=== PATIENT | male | born 1940 | race Caucasian/White ===

== ENCOUNTER → 2024-05-07 | Outpatient (CLI) | payer MEDICARE, SELFPAY ==
--- NOTE | 2024-05-07 14:22 | XR_ITS ---
Examination: Retroperitoneal ultrasound, complete Technique: Multiple high resolution grayscale images of the retroperitoneum obtained, including kidneys and bladder. Exam date and time:May 07, 2024 1431 hours INDICATIONS: Acute renal insufficiency diagnosis several months ago. FINDINGS: Right kidney 10.1 x 5.1 x 5.3 cm cortex 1.5 cm 15 x 16 mm lateral cyst 20 x 19 mm upper pole cyst Left kidney 8.9 x 4.3 x 3.7 cm renal cortex 1.3 cm Moderate bilateral renal parenchymal scar formation Left perinephric stranding No bladder mass or bladder calculi Bladder prevoid volume 255 cc patient unable to void Normal prostate volume 14.6 cc no prostate nodules IMPRESSION: Small left kidney Bilateral renal cortical thinning Moderate bilateral renal parenchymal scar formation
== END | disposition home or self-care (01) ==
PROVIDERS: PCP Family Medicine; Referring Provider Internal Medicine; Visit Provider Internal Medicine
DX: N28.89 Other specified disorders of kidney and ureter (principal)
CPT/HCPCS: 76770

== ENCOUNTER → 2024-06-19 | Outpatient (CLI) | payer MEDICARE, SELFPAY ==
[2024-06-19 08:00] LABS: Collection Type, Urine Clean Catch; Squamous Epithelial Cell,Urine 0 /hpf (0-5)
[2024-06-19 08:34] LABS: Basophils # (Auto) 0.1 Thou/mm3 (0.0-0.2); Basophils % (Auto) 1 % (0-2.5); Eosinophils # (Auto) 0.5 Thou/mm3 (0.0-0.5); Eosinophils % (Auto) 7 % (0-10); Hematocrit 44.4 % (41.0-53.0); Hemoglobin 14.4 g/dL (13.5-16.0); Immature Granulocytes % (Auto) 0 % (0-0); Immature Granulocytes Auto 0.03 Thou/mm3 (0.00-0.00); Lymphocytes # (Auto) 1.1 Thou/mm3 (1.0-4.8); Lymphocytes % (Auto) 15 % (10-50); Mean Corpuscular HGB Conc 32.4 g/dl (31.0-37.0); Mean Corpuscular Hemoglobin 27.9 pg (25.0-35.0); Mean Corpuscular Volume 86 fL (80-100); Monocytes # (Auto) 0.7 Thou/mm3 (0.0-0.8); Monocytes % (Auto) 10 % (0-12); Neutrophils # (Auto) 4.6 Thou/mm3 (1.8-7.7); Neutrophils % (Auto) 67 % (37-80); Nucleated Red Blood Cell % 0 /100 WBC (0); Platelet Count 250 Thou/mm3 (140-440); RDW Standard Deviation 41.2 fL (35.1-43.9); Red Blood Count 5.16 Miln/mm3 (4.50-5.90)
[2024-06-19 08:38] LABS: Bilirubin,Urine Negative (Negative); Blood,Urine Negative (Negative); Clarity,Urine Clear (Clear/Hazy); Color,Urine Lt-Yellow (Lt Yel-Yel); Glucose, Urine Negative (Negative); Ketones,Urine Negative (Negative); Leukocyte Esterase,Urine Negative (Negative); Nitrite,Urine Negative (Negative); PH,Urine 6.5 (5.0-7.0); Protein,Urine Negative (Neg - Trace); RBC,Urine 2 /hpf (0-3); Specific Gravity,Urine 1.013 (1.001-1.035); Urobilinogen,Urine Negative mg/dL (0.0-1.0); WBC,Urine 3 /hpf (0-5)
[2024-06-19 09:04] LABS: Alanine Aminotransferase 22 U/L (10-49); Albumin, Serum 4.2 gm/dL (3.4-4.8); Albumin/Globulin Ratio 2.2 (1.2-2.2); Alkaline Phosphatase 88 U/L (46-116); Anion Gap 7 (7-16); Aspartate Amino Transferase 19 U/L (0-34); BUN/Creatinine Ratio 9 Ratio (12-20); Bilirubin,Total 0.4 mg/dL (0.3-1.2); Blood Urea Nitrogen 16 mg/dL (9-23); Calcium 9.2 mg/dL (8.3-10.6); Calcium (Corrected) 9.2 mg/dL (8.5-10.1); Cardiac Risk Estimate 2.7 RATIO (4.0-6.7); Chloride 105 mMol/L (98-107); Cholesterol 104 mg/dL (132-200); Creatinine (Component) 1.7 mg/dL (0.6-1.3); Globulin 1.9 gm/dL (2.3-3.5); Glucose 94 mg/dL (74-106); HDL Cholesterol 38 mg/dL (40-60); LDL Cholesterol,Calculated 35 mg/dL (0-130); Osmolality,Calculated 286 (275-295); Phosphorous 4.4 mg/dL (2.4-5.1); Potassium 4.7 mMol/L (3.4-5.1); Sodium 143 mMol/L (136-145); Total Protein 6.1 gm/dL (5.7-8.2); Triglycerides 154 mg/dL (30-150); Uric Acid 6.1 mg/dL (3.7-9.2); eGFR 39 See Note
== END | disposition home or self-care (01) ==
LOC: COPL 06:45
PROVIDERS: PCP Family Medicine; Referring Provider Internal Medicine Cardiovascular Disease; Visit Provider Internal Medicine
DX: Z00.00 Encounter for general adult medical examination without abnormal findings (principal); E78.2 Mixed hyperlipidemia; I12.9 Hypertensive chronic kidney disease with stage 1 through stage 4 chronic kidney disease, or unspecified chronic kidney disease; N18.32 Chronic kidney disease, stage 3b; N20.0 Calculus of kidney
CPT/HCPCS: 36415; 80053; 80061; 81001; 83970; 84100; 84550; 85025

== ENCOUNTER → 2024-08-21 | Outpatient (CLI) | payer MEDICARE, SELFPAY ==
[2024-08-21 16:13] LABS: Glucose Estimated Average 134 mg/dL (80-131); Hemoglobin A1C 6.3 % Hgb (4.8-6.0)
[2024-08-21 16:24] LABS: Alanine Aminotransferase 24 U/L (10-49); Albumin, Serum 4.1 gm/dL (3.4-4.8); Albumin/Globulin Ratio 2.1 (1.2-2.2); Alkaline Phosphatase 88 U/L (46-116); Anion Gap 9 (7-16); Aspartate Amino Transferase 27 U/L (0-34); BUN/Creatinine Ratio 14 Ratio (12-20); Bilirubin,Total 0.3 mg/dL (0.3-1.2); Blood Urea Nitrogen 26 mg/dL (9-23); Calcium 9.1 mg/dL (8.3-10.6); Calcium (Corrected) 9.1 mg/dL (8.5-10.1); Chloride 104 mMol/L (98-107); Creatinine (Component) 1.8 mg/dL (0.6-1.3); Glucose 166 mg/dL (74-106); Osmolality,Calculated 289 (275-295); Potassium 5.2 mMol/L (3.4-5.1); Sodium 141 mMol/L (136-145); Thyroid Stimulating Hormone 3.56 uIU/mL (0.55-4.78); Total Protein 6.1 gm/dL (5.7-8.2); Uric Acid 5.6 mg/dL (3.7-9.2); eGFR 36 See Note
[2024-08-21 16:34] LABS: Creatinine MALB Rnd Ur 57 mg/dL (30-125); Microalbumin, Random Urine < 3 mg/L (0-300)
== END | disposition home or self-care (01) ==
LOC: COPL 13:56
PROVIDERS: PCP Family Medicine; Referring Provider Internal Medicine Cardiovascular Disease; Visit Provider Internal Medicine
DX: Z00.00 Encounter for general adult medical examination without abnormal findings (principal); E11.22 Type 2 diabetes mellitus with diabetic chronic kidney disease; N18.32 Chronic kidney disease, stage 3b; I10 Essential (primary) hypertension; E79.0 Hyperuricemia without signs of inflammatory arthritis and tophaceous disease; E78.2 Mixed hyperlipidemia
CPT/HCPCS: 36415; 80053; 82043; 82570; 83036; 84443; 84550

== ENCOUNTER → 2024-10-23 | Outpatient (CLI) | payer MEDICARE, SELFPAY ==
[2024-10-23 13:40] LABS: Collection Type, Urine Clean Catch; Squamous Epithelial Cell,Urine 0 /hpf (0-5)
[2024-10-23 14:32] LABS: Bilirubin,Urine Negative (Negative); Blood,Urine Negative (Negative); Clarity,Urine Clear (Clear/Hazy); Color,Urine Lt-Yellow (Lt Yel-Yel); Glucose, Urine Negative (Negative); Ketones,Urine Negative (Negative); Leukocyte Esterase,Urine Positive (Negative); Nitrite,Urine Negative (Negative); Protein,Urine Negative (Neg - Trace); RBC,Urine 3 /hpf (0-3); Urobilinogen,Urine Negative mg/dL (0.0-1.0); WBC,Urine 7 /hpf (0-5)
[2024-10-23 14:41] LABS: Albumin, Serum 4.2 gm/dL (3.4-4.8); Anion Gap 6 (7-16); BUN/Creatinine Ratio 11 Ratio (12-20); Blood Urea Nitrogen 21 mg/dL (9-23); Calcium 8.8 mg/dL (8.3-10.6); Calcium (Corrected) 8.8 mg/dL (8.5-10.1); Chloride 105 mMol/L (98-107); Creatinine (Component) 1.9 mg/dL (0.6-1.3); Glucose 139 mg/dL (74-106); Osmolality,Calculated 286 (275-295); Phosphorous 3.5 mg/dL (2.4-5.1); Potassium 4.9 mMol/L (3.4-5.1); Sodium 141 mMol/L (136-145); eGFR 34 See Note
== END | disposition home or self-care (01) ==
LOC: COPL 13:15
PROVIDERS: PCP Internal Medicine; Referring Provider Internal Medicine; Visit Provider Internal Medicine
DX: I12.9 Hypertensive chronic kidney disease with stage 1 through stage 4 chronic kidney disease, or unspecified chronic kidney disease (principal); N18.30 Chronic kidney disease, stage 3 unspecified
CPT/HCPCS: 36415; 80069; 81001

== ENCOUNTER → 2024-11-06 | Outpatient (CLI) | payer MEDICARE, SELFPAY ==
[2024-11-06 09:09] LABS: Alanine Aminotransferase 25 U/L (10-49); Albumin, Serum 4.1 gm/dL (3.4-4.8); Albumin/Globulin Ratio 1.8 (1.2-2.2); Alkaline Phosphatase 83 U/L (46-116); Anion Gap 8 (7-16); Aspartate Amino Transferase 24 U/L (0-34); BUN/Creatinine Ratio 12 Ratio (12-20); Bilirubin,Total 0.4 mg/dL (0.3-1.2); Blood Urea Nitrogen 22 mg/dL (9-23); Calcium 8.8 mg/dL (8.3-10.6); Calcium (Corrected) 8.8 mg/dL (8.5-10.1); Cardiac Risk Estimate 2.9 RATIO (4.0-6.7); Chloride 107 mMol/L (98-107); Cholesterol 96 mg/dL (132-200); Creatinine (Component) 1.9 mg/dL (0.6-1.3); Globulin 2.3 gm/dL (2.3-3.5); Glucose 110 mg/dL (74-106); HDL Cholesterol 33 mg/dL (40-60); LDL Cholesterol,Calculated 39 mg/dL (0-130); Osmolality,Calculated 285 (275-295); Sodium 141 mMol/L (136-145); Total Protein 6.4 gm/dL (5.7-8.2); Triglycerides 121 mg/dL (30-150); Uric Acid 6.3 mg/dL (3.7-9.2); eGFR 34 See Note
== END | disposition home or self-care (01) ==
LOC: COPL 07:38
PROVIDERS: PCP Family Medicine; Referring Provider Family Medicine; Visit Provider Family Medicine
DX: I12.9 Hypertensive chronic kidney disease with stage 1 through stage 4 chronic kidney disease, or unspecified chronic kidney disease (principal); N18.32 Chronic kidney disease, stage 3b; E79.0 Hyperuricemia without signs of inflammatory arthritis and tophaceous disease; E78.2 Mixed hyperlipidemia
CPT/HCPCS: 36415; 80053; 80061; 84550

== ENCOUNTER 2024-11-15 15:49 | Inpatient (IN) | payer MEDICARE, SELFPAY ==
[2024-11-15] VITALS (8 sets, daily range): BP systolic 119–143; BP diastolic 66–87; PULSE 69–134; RESP 15–92; TEMP 36.6–39.3; O2SAT 78–98; BMI 33.9; BMI 38.0
--- NOTE | 2024-11-15 15:57 | XR_ITS ---
Examination: CT abdomen and pelvis without contrast. Coronal 3-D reconstructions. Sagittal 2-D reconstructions. Date and time of exam:November 15, 2024 1711 hours Comparison 03/02/2024 INDICATIONS: Sepsis alert, history kidney stones CTDI: vol (mGy): 11.9 DLP: (mGycm): 630 Technique: Axial images of the abdomen have been obtained, 3 mm slice thickness Intravenous contrast material has not been administered. Low dose protocols were performed. One or more of the following dose reduction techniques were used; automated exposure control, adjustment of the mA and/or KV according to patient size, use of iterative reconstruction technique. Findings: Minimal bilateral pleural disease Liver is irregular in contour Spleen is not enlarged Contracted gallbladder No pancreatic or adrenal mass Atrophic left kidney Moderate renal parenchymal scar formation No renal calculi or hydronephrosis, no ureteral calculi Normal appendix Colonic diverticulosis, no diverticulitis Transverse prostate dimension 4.2 cm No bladder mass or bladder calculi Moderate osteopenia IMPRESSION: Suspect primary hepatocellular disease Atrophic left kidney No renal or ureteral calculi, no hydronephrosis Normal appendix No bladder mass or bladder calculi
--- NOTE | 2024-11-15 15:58 | XR_ITS ---
Examination: AP chest single view TECHNIQUE: Portable semiupright AP chest single view Date and time: 831, 2025, 1640 hours INDICATION: Sepsis protocol FINDINGS: Opacity left base and obscuring detail left cardiac contour consistent with pneumonia Right lung clear Mild prominence left ventricle IMPRESSION: Pneumonia left base and lingular segment left upper lobe
--- NOTE | 2024-11-15 15:58 | EKG_ITS ---
[facility] Test Date: 2024-11-15 Pat Name: DARRION MUNGUIA Department: Room: - Gender: Male [employer] Technician: [place] : 1940 Requested By: Ephraim Rubio Order Number: [id number] Reading MD: Ephraim Rubio Measurements Intervals [place] Rate: 121 P: CO: QRS: 24 QRSD: 86 T: 73 QT: 307 QTc: 436 Interpretive Statements ATRIAL FIBRILLATION WITH RAPID VENTRICULAR RESPONSE ABNORMAL RHYTHM ECG Compared to ECG 01/30/2024 08:37:56 No significant changes /store/S0/[id number].pdf
--- NOTE | 2024-11-15 15:59 | PD.EDADULT ---
ED General RME/HPI General Chief complaint: Weakness Stated complaint: WEAKNESS Time Seen by Provider: 11/15/24 15:52 Arrival date/time: 11/15/24 15:49 RME / HPI RME / HPI narrative: 83-year-old male patient with significant history of CAD, BPH, was brought in by EMS for evaluation regarding generalized body weakness. Apparently patient was golfing, and later on went home with generalized body weakness, including difficulty ambulation. With the EMS arrived patient was noted to be satting 70% on room air. Unable to ambulate without help. Also complained of cough for few days. Severity mild. Currently patient is denying any headache denies any upper or lower extremity lateralization weakness, denies any cough, however patient told me that he had a history of kidney stone. He thinks he might be having UTI. Patient denies any other complaints. While examining and talking to the patient patient was noted to be coughing. Nonproductive. Sepsis alert was initiated patient is having tachycardia and a fever Related Data Home Medications ?Medication ?Instructions ?Recorded ?Confirmed allopurinol 100 mg tablet 200 mg PO QDAY 12/05/23 02/25/24 aspirin 81 mg tablet,delayed 81 mg PO QDAY 01/29/24 02/25/24 release Held on 02/13/24. Instructions: Resume on 02/15/24. Start on Sunday morning cyclobenzaprine 5 mg tablet 5 mg PO Q8HR PRN Muscle pain or 01/29/24 02/25/24 muscle spasm gabapentin 100 mg capsule 200 mg PO QDAY 01/29/24 02/25/24 rosuvastatin 20 mg tablet 20 mg PO QDAY 01/29/24 02/25/24 levofloxacin 500 mg tablet 500 mg PO QDAY 02/25/24 02/25/24 tamsulosin 0.4 mg capsule (Flomax) 0.8 mg PO Q24H 02/25/24 Previous Rx's ?Medication ?Instructions ?Recorded hydrocodone 5 mg-acetaminophen 300 1 tab PO Q8H PRN pain #10 tabs 02/13/24 mg tablet Allergies Allergy/AdvReac Type Severity Reaction Status Date / Time Sulfa (Sulfonamide Allergy Severe Hives Verified 03/03/24 08:31 Antibiotics) Tetracyclines AdvReac Severe DARK SPOTS Verified 03/03/24 08:31 ON LEGS Review of Systems Review of Systems Narrative Review of Systems: Review of system reviewed and within normal limits except mentioned in HPI ED Exam Narrative Physical exam: VITAL SIGNS: Reviewed. GENERAL APPEARANCE: Alert and interactive, follows commands, no acute distress, febrile HEAD AND FACE: Non-traumatic. ENT: PERRL, pink conjunctivitis, eyelid no trauma, Mucous membrane moist. NECK: Supple, nontender, no nuchal rigidity. CHEST: No tenderness, no crepitus, no paradoxical movement, no retractions. LUNGS: Clear, well ventilated, symmetric, no rales, no wheezing, no ronchi, no stridor, good breath sounds bilaterally. HEART: Regular rate, regular rhythm, no murmur, no gallops. ABDOMEN: Soft, positive bowel sounds, nondistended, no guarding, nontender, no rebound, no masses, RECTAL: Deferred. GENITAL: Deferred. NEUROLOGICAL: Gross motor function intact sensory function intact, Appropriate for age. MUSCULOSKELETAL: low back nontender, full range of motion. EXTREMITIES: Nontender, full range of motion. SKIN: Color pink, dry, no rash, no lacerations, no abrasions, no contusions. LYMPHATICS: Deferred. Course Quality Measures none Orders Category Date Time Status Patient Condition Routine Admission 11/15/24 21:[address] in Observation Status Routine Admission 11/15/24 21:01 Active Bedside COVID-19 Antigen Test NOW Care 11/15/24 21:05 Active COVID-19 Screening Questionnaire NOW Care 11/15/24 19:37 Active Drug Worker STAT Care 11/15/24 15:58 Active Continuous Pulse Oximetry STAT Care 11/15/24 15:58 Completed Decision to Admit X1 Care 11/15/24 19:37 Completed EKG (ED ONLY) *Do not use* NOW Care 11/15/24 15:58 Completed In and Out Catheter X1PRN Care 11/15/24 15:58 Completed Insert IV NOW Care 11/15/24 15:58 Active Miscellaneous Nursing Order NOW Care 11/15/24 21:01 Active NPO STAT Care 11/15/24 15:58 Active Notify provider NEEDED Care 11/15/24 21:01 Active Sequential Compression Device QSHIFT Care 11/15/24 21:01 Active Strict Intake and Output Routine Care 11/15/24 15:58 Ordered Diet Regular Diet 11/15/[address] abdomen pelvis wo con Stat Exams 11/15/24 15:57 Completed EKG (ED Only) Stat Exams 11/15/24 15:58 Draft XR chest 1V SEPSIS PROTOCOL Stat Exams 11/15/24 15:58 Completed B-Type Natriuretic Peptide Stat Lab 11/15/24 16:33 Completed Blood Culture (Lab) Stat Lab 11/15/24 16:33 Received CBC AM DRAW Lab 11/16/24 05:00 Ordered CBC AM DRAW Lab 11/17/24 05:00 Ordered CBC AM DRAW Lab 11/18/24 05:00 Ordered CBC Stat Lab 11/15/24 16:33 Completed Comprehensive Metabolic Panel AM DRAW Lab 11/16/24 05:00 Ordered Comprehensive Metabolic Panel AM DRAW Lab 11/17/24 05:00 Ordered Comprehensive Metabolic Panel AM DRAW Lab 11/18/24 05:00 Ordered Comprehensive Metabolic Panel Stat Lab 11/15/24 16:33 Completed Creatine Kinase Routine Lab 11/15/24 21:04 Ordered LDH (Lactate Dehydrogenase) Stat Lab 11/15/24 16:33 Completed Lactate (Lactic Acid) Stat Lab 11/15/24 16:33 Completed Lactic Acid, 3 HR Stat Lab 11/15/24 20:36 Completed Lipase Stat Lab 11/15/24 16:33 Completed Magnesium Stat Lab 11/15/24 16:33 Completed Partial Thromboplastin Time Stat Lab 11/15/24 16:33 Completed Phosphorous Stat Lab 11/15/24 16:33 Completed Procalcitonin Stat Lab 11/15/24 16:33 Completed Prothrombin Time with INR Stat Lab 11/15/24 16:33 Completed Troponin I Stat Lab 11/15/24 16:33 Completed Urinalysis Stat Lab 11/15/24 17:00 Completed Urine Culture Stat Lab 11/15/24 17:00 Received Acetaminophen Tab [Tylenol ES Tab] Med 11/15/24 15:57 Discontinued 1,000 mg PO X1 ONE Acetaminophen Tab [Tylenol Tab] Med 11/15/24 21:01 Active 650 mg PO Q6H PRN Azithromycin Inj [Zithromax Inj] 500 mg Med 11/15/24 18:19 Discontinued Sodium Chloride 0.9% 250 ml [Ns] 250 ml IV X1 Docusate Sod [Colace] Med 11/15/24 21:01 Active 100 mg PO QDAY PRN Heparin Inj Med 11/16/24 09:00 Active 5,000 unit SC Q12HR Ondansetron Inj [Zofran Inj] Med 11/15/24 21:01 Active 4 mg IVP Q6H PRN Pantoprazole [Protonix] Med 11/16/24 09:00 Active 40 mg PO QDAY Sodium Chloride 0.9% 1000 ml [Ns] 1,000 ml Med 11/15/24 15:58 Discontinued IV 999 mls/hr cefTRIAXone/D5w 1gm IV premix [Rocephin/D5w 1gm IV Med 11/15/24 15:59 Discontinued premix] 1 gm in 50 ml IV X1 Code Status Routine Oth 11/15/24 21:01 Ordered Oxygen Delivery NOW RT 11/15/24 15:58 Active Vital Signs Vital signs: Vital Signs Temperature 102.7 F H 11/15/24 15:59 Pulse Rate 134 H 11/15/24 15:59 Respiratory Rate 24 H 11/15/24 15:59 Blood Pressure 119/66 11/15/24 15:59 Pulse Oximetry (%) 95 11/15/24 15:59 Oxygen Delivery Method Oxy Mask 11/15/24 15:59 Discharge Plan Plan Patient Disposition: Admit Acute Care w/in Hospital Discharge Disposition comment: Stable Prescriptions/Referrals Prescriptions/Med Rec: No Action tamsulosin [Flomax] 0.4 mg capsule 0.8 mg PO Q24H Rx Instructions: administer 30 minutes after same meal each day; swallow whole with liquid; do not crush/chew/dissolve/open levofloxacin 500 mg tablet 500 mg PO QDAY hydrocodone-acetaminophen 5-300 mg tablet 1 tab PO Q8H MDD 3 PRN (Reason: pain) Qty: 10 0RF allopurinol 100 mg Tablet 200 mg PO QDAY Rx Instructions: PO daily for high uric acid rosuvastatin 20 mg tablet 20 mg PO QDAY Patient Comments: TAKE 1 TABLET BY MOUTH EVERY DAY AT NIGHT FOR HIGH CHOLESTEROL aspirin 81 mg Tablet,Delayed Release (Dr/Ec) 81 mg PO QDAY gabapentin 100 mg capsule 200 mg PO QDAY Patient Comments: PLEASE SEE ATTACHED FOR DETAILED DIRECTIONS cyclobenzaprine 5 mg tablet 5 mg PO Q8HR PRN (Reason: Muscle pain or muscle spasm) Patient Comments: TAKE 1 TABLET BY MOUTH EVERY 8 HOURS NEEDED FOR MUSCLE PAIN OR SPASM Rx Instructions: take 1 tablet by mouth every 8 hours as needed for muscle spasm or muscle pain Referrals: No Primary/Family,Physician [Primary Care Provider] - In 1 week Problem List Clinical Impression: Sepsis, Pneumonia, Weakness generalized Patient/Caregiver Discharge Instructions Education Materials: ED Pneumonia (Adult) Print Language: Syriac Stand Alone Forms: Rashida Award Info., Patient Portal Info Letter MDM Narrative MDM hospital course: 83-year-old male patient with significant history of CAD, BPH, was brought in by EMS for evaluation regarding generalized body weakness. Apparently patient was golfing, and later on went home with generalized body weakness, including difficulty ambulation. With the EMS arrived patient was noted to be satting 70% on room air. Unable to ambulate without help. Also complained of cough for few days. Severity mild. Currently patient is denying any headache denies any upper or lower extremity lateralization weakness, denies any cough, however patient told me that he had a history of kidney stone. He thinks he might be having UTI. Patient denies any other complaints. While examining and talking to the patient patient was noted to be coughing. Nonproductive. Sepsis alert was initiated patient is having tachycardia and a fever EKG showed atrial fibrillation, with RVR, ventricular rate of 121 bpm, no ST segment elevation depression noted. Chest x-ray showed pneumonia. Laboratory workup is significant for slightly elevated lactic acid, no leukocytosis noted, creatinine was noted to be 2.0, BUN is normal CT scan of the abdomen pelvis came back unremarkable. Received IV fluids, Tylenol, Zithromax and ceftriaxone IV Case discussed with hospitalist who admitted the patient Clinical Information Provided by EMS and spouse Medical Records Reviewed None Meds/Rx Considered, not Ordered None Medication Administration(s) Medication Administration History Acetaminophen (Acetaminophen 325 Mg Tablet) 650 mg PO Q6H PRN PRN Reason: Fever >101.5 Stop: 12/15/24 21:00 Docusate Sodium (Docusate Sod 100 Mg Capsule) 100 mg PO QDAY PRN; Protocol PRN Reason: CONSTIPATION Stop: 12/15/24 21:00 Heparin Sodium (Porcine) (Heparin Sod Inj 5000 Unit/Ml Vial) 5,000 unit SC Q12HR GAGE Stop: 11/30/24 08:59 Ondansetron HCl (Ondansetron Inj 2 Mg/Ml Inj 2 Ml) 4 mg IVP Q6H PRN; Protocol PRN Reason: NAUSEA OR VOMITING Stop: 12/15/24 21:00 Pantoprazole Sodium (Pantoprazole 40 Mg Tablet) 40 mg PO QDAY GAGE Stop: 12/16/24 08:59 Discontinued Medications Acetaminophen (Acetaminophen 500 Mg Tablet) 1,000 mg PO X1 ONE Stop: 11/15/24 15:58 Last Admin: 11/15/24 16:43 Dose: 1,000 mg Documented By: GM Sodium Chloride (Ns) 1,000 mls @ 999 mls/hr IV .Q1H1M ONE Stop: 11/15/24 16:58 Last Infusion: 11/15/24 17:50 Dose: Infused Documented By: Admin: 11/15/24 16:47 Dose: 999 mls/hr Documented By: GM Ceftriaxone Sodium/Dextrose (Rocephin/D5w 1gm Iv Premix) 1 gm in 50 mls @ 100 mls/hr IV X1 ONE Stop: 11/15/24 16:28 Last Infusion: 11/15/24 17:30 Dose: Infused Documented By: Admin: 11/15/24 16:46 Dose: 100 mls/hr Documented By: GM Azithromycin 500 mg/ Sodium (Chloride) 250 mls @ 250 mls/hr IV X1 ONE Stop: 11/15/24 19:18 Last Infusion: 11/15/24 20:57 Dose: Infused Documented By: Admin: 11/15/24 19:31 Dose: 250 mls/hr Documented By: CB Diagnosis Differential diagnosis: Sepsis, pneumonia, UTI, dehydration Most likely dx, and/or detailed dx discussion: Sepsis, pneumonia Dispositon Disposition: Admit
[2024-11-15] MEDS: ACETAMINOPHEN 500 MG TABLET 1000 MG PO (16:43)
[2024-11-15] MEDS: cefTRIAXone/D5w 1gm IV premix 1 GM/50 ML BAG IV (16:46)
[2024-11-15] MEDS: SODIUM CHLORIDE 0.9% 1000 ML 1,000 ML 999 ML IV (16:47)
[2024-11-15 16:50] LABS: Lactate (Lactic Acid) 2.1 mMol/L (0.4-2.0)
[2024-11-15 16:51] LABS: Basophils % (Auto) 1 % (0-2.5); Eosinophils % (Auto) 0 % (0-10); Hematocrit 41.3 % (41.0-53.0); Hemoglobin 14.3 g/dL (13.5-16.0); Immature Granulocytes % (Auto) 0 % (0-0); Immature Granulocytes Auto 0.02 Thou/mm3 (0.00-0.00); Lymphocytes # (Auto) 0.4 Thou/mm3 (1.0-4.8); Lymphocytes % (Auto) 5 % (10-50); Mean Corpuscular HGB Conc 34.6 g/dl (31.0-37.0); Mean Corpuscular Hemoglobin 28.8 pg (25.0-35.0); Mean Corpuscular Volume 83 fL (80-100); Monocytes # (Auto) 0.8 Thou/mm3 (0.0-0.8); Monocytes % (Auto) 9 % (0-12); Neutrophils # (Auto) 7.5 Thou/mm3 (1.8-7.7); Neutrophils % (Auto) 85 % (37-80); Nucleated Red Blood Cell % 0 /100 WBC (0); Platelet Count 206 Thou/mm3 (140-440); RDW Standard Deviation 42.2 fL (35.1-43.9); Red Blood Count 4.97 Miln/mm3 (4.50-5.90); White Blood Count 8.8 Thou/mm3 (3.8-10.6)
[2024-11-15 17:13] LABS: INR 1.2 (0.9-1.3); Partial Thromboplastin Time 27.7 Seconds (22.0-36.0)
[2024-11-15 17:21] LABS: Collection Type, Urine Clean Catch
[2024-11-15 17:22] LABS: Alanine Aminotransferase 19 U/L (10-49); Albumin, Serum 4.2 gm/dL (3.4-4.8); Albumin/Globulin Ratio 2.1 (1.2-2.2); Alkaline Phosphatase 82 U/L (46-116); Anion Gap 10 (7-16); Aspartate Amino Transferase 21 U/L (0-34); BUN/Creatinine Ratio 11 Ratio (12-20); Bilirubin,Total 0.5 mg/dL (0.3-1.2); Blood Urea Nitrogen 21 mg/dL (9-23); Calcium 8.7 mg/dL (8.3-10.6); Calcium (Corrected) 8.7 mg/dL (8.5-10.1); Carbon Dioxide 26.1 mMol/L (20.0-31.0); Chloride 106 mMol/L (98-107); Estimated Creatinine Clearance 30.9 mL/min (>60); Glucose 123 mg/dL (74-106); LDH (Lactate Dehydrogenase) 188 U/L (120-246); Lipase 37 U/L (12-53); Osmolality,Calculated 287 (275-295); Potassium 4.6 mMol/L (3.4-5.1); Sodium 142 mMol/L (136-145); Total Protein 6.2 gm/dL (5.7-8.2); Troponin I < 0.020 ng/mL (0.0-0.045); eGFR 32 See Note
[2024-11-15 17:27] LABS: Procalcitonin 0.16 ng/ml (0.0-0.49)
[2024-11-15 17:30] LABS: B-Type Natriuretic Peptide 86 pg/mL (0-100)
[2024-11-15 17:37] LABS: Bilirubin,Urine Negative (Negative); Blood,Urine Negative (Negative); Clarity,Urine Clear (Clear/Hazy); Color,Urine Yellow (Lt Yel-Yel); Glucose, Urine Negative (Negative); Ketones,Urine Negative (Negative); Leukocyte Esterase,Urine Negative (Negative); Nitrite,Urine Negative (Negative); Protein,Urine Trace (Neg - Trace); RBC,Urine 1 /hpf (0-3); Squamous Epithelial Cell,Urine < 1 /hpf (0-5); Urobilinogen,Urine Negative mg/dL (0.0-1.0); WBC,Urine 2 /hpf (0-5)
[2024-11-15] MEDS: AZITHROMYCIN INJ 500 MG in SODIUM CHLORIDE 0.9% 250 ML 250 ML 250 MG IV (19:31)
[2024-11-15 19:48] LABS: Reflex Lactate? Y
[2024-11-15 20:40] LABS: Lactic Acid, 3 HR 1.2 mMol/L (0.4-2.0)
[2024-11-15 21:52] LABS: Creatine Kinase 96 U/L (34-171)
--- NOTE | 2024-11-15 22:03 | PD.RESHP ---
Documentation for date of: 11/15/24 [facility] History of Present Illness Chief complaint: Generalised weakness History of present illness: A 83-year-old male with significant past medical history of hypertension, hyperlipidemia, CAD s/p PCI in 2023, chronic atrial fibrillation not on any anticoagulation, gout, kidney stones s/p nephrostomy placement, BPH, shingles. Presented to the hospital with chief complaints of generalized weakness since this afternoon. Patient was apparently normal till this morning, later he went out to play golf and stayed out in the hot weather for 6 to 7 hours following which he noticed generalized weakness predominantly in the lower extremity and had difficulty walking, also endorsed that he had a fall without hitting his head or spine. He reported that he managed to drive his car and went home. After going home, despite taking rest he noticed generalized weakness and was not able to get up for which ambulance was called and patient was brought to the hospital. Endorsed that he had cough for couple of days before the hospital admission but denies any current complaints. Denies fever, abdominal pain, burning micturition, difficulty in urination, diarrhea, vomitings, headache. ED course: - Vitals at the time of admission was significant for pulse rate of 134 bpm, respiratory rate 24/min, temperature 102.7 ?F, SpO2 95% with 2 L oxygen - Labs are significant for creatinine 2 and phosphorus 1 - Tested negative for COVID, influenza A and B. Abdomen/pelvis CT showed atrophic left kidney without any other significant abnormalities - Chest x-ray showed infiltrates in left lower lobe Past medical history: Hypertension, hyperlipidemia, CAD, chronic atrial fibrillation, gout, kidney stones, BPH Past surgical history: CAD s/p PCI, nephrostomy tube placement Social history: Quit smoking 40 years ago, consume alcohol once or twice in a week, denies marijuana, other illicit drug abuse Allergies: Sulfa, tetracyclines Review of Systems Review of Systems Systems Reviewed: All systems reviewed, normal except as documented Past Medical History Past Medical History NEUROLOGIC: Positive Head Trauma; Negative Neurological Disorders or Seizures CARDIAC: Positive Cardiac Disorders, Cardiac Arrhythmia, Atrial Fibrillation, Coronary Artery Disease, Hypercholesterolemia and Hypertension; Negative Congestive Heart Failure RESPIRATORY: Positive Bronchitis; Negative Chronic Obstructive Pulmonary Disease (COPD) GASTROINTESTINAL: Negative Gastrointestinal Disorders or Hepatitis GENITOURINARY: Positive Genitourinary Disorders, Kidney Stones and Benign Prostatic Hyperplasia; Negative Renal Disease MUSCULOSKELETAL: Positive Musculoskeletal Disorders and Fractures ENT: Positive Cataracts and Head Trauma ENDOCRINE: Negative Endocrine Disorders, Diabetes Mellitus Type 1 or Diabetes Mellitus Type 2 HEMATOLOGIC: Negative Blood Disorders OTHER HISTORY: Positive Hospitalization, Shingles, Chicken Pox, Measles and Mumps; Negative Autoimmune Disease, Blood Transfusions, Blood Transfusion Reaction, Anesthesia Reactions, MRSA or Cancer Family History FAMILY HISTORY: Positive Family Cardiac Disorders; Negative Family Psychiatric Problems, Family Respiratory Disorders, Family Gastrointestinal Problems, Family Cancer, Family Surgery or Family Anesthesia Reaction Surgical History SURGICAL: Positive Cardiac Surgery, Coronary Stent, Tonsillectomy and Vasectomy; Negative Nephrectomy or Joint Replacement Social History SMOKING STATUS: Former smoker Exam Vital Signs Temp Pulse Resp BP Pulse Ox O2 Del Method O2 Flow Rate 97.9 F 69 15 138/67 H 95 Nasal Cannula 2 11/15/24 21:16 11/15/24 21:16 11/15/24 21:16 11/15/24 21:16 11/15/24 21:16 11/15/24 21:16 11/15/24 17:01 FiO2 2 11/15/24 21:16 Narrative Exam General: Awake. HEENT: Normocephalic, atraumatic, mucous membranes moist. Heart: Irregular rate and rhythm, no murmurs. Lungs: Clear to auscultation with no wheezing or crackles. Abdomen: Soft, nondistended, nontender, positive bowel sounds. ?No guarding or rebound tenderness. Neurologic: Alert and oriented x3, no gross neurological deficit, and patient able to move all 4 extremities. Extremities: Peripheral vascular changes noted in the lower extremities Skin: No rash or ecchymoses. Results: Labs 11/15/24 16:33 11/15/24 16:33 Labs: Short CBC 11/15/24 Range/Units 16:33 WBC 8.8 (3.8-10.6) Thou/mm3 Hgb 14.3 (13.5-16.0) g/dL Hct 41.3 (41.0-53.0) % Plt Count 206 (140-440) Thou/mm3 BMP 11/15/24 16:33 Sodium 142 Potassium 4.6 Chloride 106 Carbon Dioxide 26.1 BUN 21 Creatinine 2.0 H Glucose 123 H Calcium 8.7 Cardiac Enzymes 11/15/24 11/15/24 Range/Units 16:33 20:30 Total Creatine Kinase 96 (34-171) U/L Troponin I < 0.020 (0.0-0.045) ng/mL Liver Function 11/15/24 Range/Units 16:33 Total Bilirubin 0.5 (0.3-1.2) mg/dL AST 21 (0-34) U/L ALT 19 (10-49) U/L Alkaline Phosphatase 82 (46-116) U/L Albumin 4.2 (3.4-4.8) gm/dL Urine 11/15/24 Range/Units 17:00 Urine Color Yellow (Lt Yel-Yel) Urine Clarity Clear (Clear/Hazy) Urine pH 7.0 (5.0-7.0) Ur Specific [place] 1.020 (1.001-1.035) Urine Protein Trace (Neg - Trace) Urine Glucose (UA) Negative (Negative) Quality Measures Quality Measures none Advance care planning discussed with:: patient Medications Home Medications and Allergies Home Medications ?Medication ?Instructions ?Recorded ?Confirmed ?Type allopurinol 100 mg tablet 200 mg PO QDAY 12/05/23 11/15/24 History aspirin 81 mg tablet,delayed 81 mg PO QDAY 01/29/24 11/15/24 History release gabapentin 100 mg capsule 200 mg PO QDAY 01/29/24 11/15/24 History rosuvastatin 20 mg tablet 20 mg PO QDAY 01/29/24 11/15/24 History tamsulosin 0.4 mg capsule (Flomax) 0.8 mg PO Q24H 02/25/24 11/15/24 History Allergies Allergy/AdvReac Type Severity Reaction Status Date / Time Sulfa (Sulfonamide Allergy Severe Hives Verified 03/03/24 08:31 Antibiotics) Tetracyclines AdvReac Severe DARK SPOTS Verified 03/03/24 08:31 ON LEGS Visit Medications Acetaminophen (Acetaminophen 325 Mg Tablet) 650 mg PO Q6H PRN PRN Reason: Fever >101.5 Stop: 12/15/24 21:00 Docusate Sodium (Docusate Sod 100 Mg Capsule) 100 mg PO QDAY PRN; Protocol PRN Reason: CONSTIPATION Stop: 12/15/24 21:00 Heparin Sodium (Porcine) (Heparin Sod Inj 5000 Unit/Ml Vial) 5,000 unit SC Q12HR GAGE Stop: 11/30/24 08:59 Ondansetron HCl (Ondansetron Inj 2 Mg/Ml Inj 2 Ml) 4 mg IVP Q6H PRN; Protocol PRN Reason: NAUSEA OR VOMITING Stop: 12/15/24 21:00 Pantoprazole Sodium (Pantoprazole 40 Mg Tablet) 40 mg PO QDAY GAGE Stop: 12/16/24 08:59 Discontinued Medications Acetaminophen (Acetaminophen 500 Mg Tablet) 1,000 mg PO X1 ONE Stop: 11/15/24 15:58 Last Admin: 11/15/24 16:43 Dose: 1,000 mg Sodium Chloride (Ns) 1,000 mls @ 999 mls/hr IV .Q1H1M ONE Stop: 11/15/24 16:58 Last Infusion: 11/15/24 17:50 Dose: Infused Ceftriaxone Sodium/Dextrose (Rocephin/D5w 1gm Iv Premix) 1 gm in 50 mls @ 100 mls/hr IV X1 ONE Stop: 11/15/24 16:28 Last Infusion: 11/15/24 17:30 Dose: Infused Azithromycin 500 mg/ Sodium (Chloride) 250 mls @ 250 mls/hr IV X1 ONE Stop: 11/15/24 19:18 Last Infusion: 11/15/24 20:57 Dose: Infused Assessment & Plan Plan A 83-year-old male with significant past medical history of hypertension, hyperlipidemia, CAD s/p PCI in 2023, chronic atrial fibrillation not on any anticoagulation, gout, kidney stones s/p nephrostomy placement, BPH, shingles. Presented to the hospital with chief complaints of generalized weakness since 1 day. # Generalized weakness # Suspicion of pneumonia, left lung. # ?Heat exhaustion - Presented to the hospital with chief complaints of generalized weakness since 4 hours - Denies fever, shortness of breath, cough, burning micturition, abdominal pain, vomitings, diarrhea - Vitals at the time of admission are significant for pulse rate 134 bpm, respiratory rate 24/min, temperature 102.7 ?F, SpO2 95% with 2 L oxygen - Sepsis alert was called on patient. Though the patient fits into SIRS criteria, patient does not appear clinically to be in sepsis - Procal is negative - Chest x-ray showed infiltrate in left lower lobe - Tested negative for influenza, COVID - Lactate at the time of admission is 2.1 which improved to 1.2 - Received 1 L of bolus in the ED Plan - Started on ceftriaxone and azithromycin 11/15- - Recommended adequate oral hydration # History of atrial fibrillation, not on anticoagulation - [id number] is 4 - EKG at the time of admission showed atrial fibrillation with rapid ventricular rate - Unsure of the reason of not being on anticoagulation - Consider starting anticoagulation for the patient # H/O CAD S/P PCI( 11/2024) # History of BPH # History of gout - Patient is currently on dual antiplatelets, tamsulosin, allopurinol - Resumed his home medications # History of kidney stones status post nephrostomy - Patient currently does not have complaints of burning micturition, back pain - Stable # History of shingles - Patient had history of shingles almost a year ago - Still have burning sensation on the right half of the face and upper right half of the chest - Patient is currently on gabapentin and resumed his home medication # History of CKD stage IIIb - Renal functions are stable as of now - Recommend to monitor renal function send no dose medications Hospital Maintenance: Dispo: medtele DVT ppx: Heparin GI ppx: pantoprazole Diet: Regular IV lines: Peripheral Code status: Full Patient plan of care was discussed with the attending physician, Dr. George Vick, PGY1 Attending Provider Attestation/Addendum I have examined the patient, reviewed labs and imaging findings, discussed the case with the resident(s), and reviewed entered orders. I agree with the plan of care as outlined in this note, with these additional summaries/recommendations: After examination of the patient and review of the clinical data, I feel that this patient needs admission to the hospital for further treatment and evaluation. Patient is a pleasant 83-year-old male with a medical history of CAD, status post stent on aspirin and Plavix, chronic atrial fibrillation, primary hypertension, hyperlipidemia, gout, CKDIIIb, and history of shingles presents to [facility] emergency department on 11/15/2024 with chief complaint of generalized body weakness. Patient and seen at bedside. Patient reports he was golfing earlier in the day and became weak and had to be helped to the ground. When EMS arrived patient was noted to be satting in the 70s on room air. Patient is unable to ambulate and also endorses productive cough. Patient's acute hypoxic respiratory failure has resolved and now on room air. Patient diagnosed with community-acquired pneumonia most likely 2/2 to GNRs. Chest x-ray shows pneumonia left base and lingular segment left upper lobe. Tmax 102.7 Fahrenheit. Curb 65 score 2 points. Patient will be admitted to the hospital under observation for IV antibiotics. Blood cultures taken and follow-up results when available. Patient also has generalized weakness and unable to ambulate at this time. Consult physical therapy. Minimal lactic acidosis present with level 2.1 and follow-up repeat. Patient has underlying CKD stage IIIb and renal function appears at baseline with creatinine 2.0 and BUN 21. Continue to avoid nephrotoxic agents and renally dose medications. Patient has chronic atrial fibrillation and had mild RVR on admission which is now resolved. Does not appear to take any rate or rhythm control medications although medication reconciliation still pending and will follow-up. Patient has history of CAD and follows cardiology Dr. Ma. It appears that patient was previously on Brilinta and then switched to Plavix and aspirin. Awaiting home medication reconciliation. Does not appear to be on NOAC for A-fib likely secondary to bleeding risk. Hypophosphatemia present and replacement given, repeat level in AM. Patient does have a history of urinary retention and nephrolithiasis. Patient was able to fill up half of the urinal jug in the emergency room although we will continue to monitor closely for any urinary retention given patient's history. Patient and patient's updated at bedside and in agreement with the plan. Admit to observation. All questions answered to satisfaction. Please see residents note for additional details of management. Dr. George MD
[2024-11-16] VITALS (11 sets, daily range): BP systolic 116–187; BP diastolic 61–89; PULSE 80–110; RESP 16–20; TEMP 36.1–36.6; O2SAT 94–98; BMI 35.6
[2024-11-16] MEDS: TAMSULOSIN HCL 0.4 MG CAPSULE 0.8 MG PO ×2 (04:32→21:39)
[2024-11-16] MEDS: NAPH,KPH MBDB 1 PACKET (1.5 GM) PO (04:33)
[2024-11-16] MEDS: LOSARTAN POTASSIUM 25 MG TABLET 50 MG PO (04:33)
--- NOTE | 2024-11-16 07:50 | ESPR_ITS ---
<Statement entered by Howard Charlton MD - 11/17/24 07:25> I discussed with and supervised the winter intern physician involved in the care of this patient. Patient assessment and plan was discussed with entire medicine team, including my attending. I agree with the assessment and plan as documented by winter intern doctor. Patient care was discussed with my attending physician Dr.Bishwakarma Howard Charlton, PGY-2 Documentation for date of: 11/16/24 Subjective Subjective Interval history: No acute overnight events. Denies any symptoms or worsening of symptoms. Afebrile vital stables. CR improving, currently 1.7, near baseline. CBC relatively unremarkable. Exam Vital Signs Temp Pulse Resp BP Pulse Ox O2 Del Method O2 Flow Rate 97.1 F 89 18 139/77 H 96 Nasal Cannula 3 11/16/24 07:26 11/16/24 07:26 11/16/24 07:26 11/16/24 07:26 11/16/24 07:26 11/16/24 07:26 11/16/24 07:26 FiO2 2 11/15/24 21:16 Narrative Exam GEN: Normal appearing adult male, NAD. HEENT: Normocephalic, atraumatic, mucous membranes moist. Heart: Irregular rate and rhythm, no murmurs. Lungs: Clear to auscultation with no wheezing or crackles. Abdomen: Soft, nondistended, nontender, positive bowel sounds. ?No guarding or rebound tenderness. Neurologic: Alert and oriented x3, no gross neurological deficit, and patient able to move all 4 extremities. Extremities: Peripheral vascular changes noted in the lower extremities Skin: No rash or ecchymoses. Objective Labs 11/16/24 10:48 11/16/24 10:48 Labs: Laboratory Results - last 24 hr 11/15/24 11/15/24 11/15/24 16:33 17:00 20:30 WBC 8.8 RBC 4.97 Hgb 14.3 Hct 41.3 MCV 83 MCH 28.8 MCHC 34.6 RDW Std Deviation 42.2 Plt Count 206 Neut % (Auto) 85 H Lymph % (Auto) 5 L [place] % (Auto) 9 Eos % (Auto) 0 Baso % (Auto) 1 Neut # (Auto) 7.5 Lymph # (Auto) 0.4 L [place] # (Auto) 0.8 Eos # (Auto) 0.0 Baso # (Auto) 0.0 Immature Gran # (Auto) 0.02 H Absolute Nucleated RBC 0.00 Immature Gran % 0 Nucleated RBC % 0 PT 13.0 H INR 1.2 APTT 27.7 Sodium 142 Potassium 4.6 Chloride 106 Carbon Dioxide 26.1 Anion Gap 10 BUN 21 Creatinine 2.0 H Estim Creat Clear Calc 30.9 L eGFR 32 L BUN/Creatinine Ratio 11 L Glucose 123 H Calculated Osmolality 287 Lactic Acid 2.1 H Calcium 8.7 Corrected Calcium 8.7 Phosphorus 1.0 L Magnesium 2.0 Total Bilirubin 0.5 AST 21 ALT 19 Alkaline Phosphatase 82 Lactate Dehydrogenase 188 Total Creatine Kinase 96 Troponin I < 0.020 B-Natriuretic Peptide 86 Total Protein 6.2 Albumin 4.2 Globulin 2.0 L Albumin/Globulin Ratio 2.1 Lipase 37 Procalcitonin 0.16 Ur Collection Type Clean Catch Urine Color Yellow Urine Clarity Clear Urine pH 7.0 Ur Specific [place] 1.020 Urine Protein Trace Urine Glucose (UA) Negative Urine Ketones Negative Urine Blood Negative Urine Nitrite Negative Urine Bilirubin Negative Urine Urobilinogen (Auto) Negative Ur Leukocyte Esterase Negative Urine RBC 1 Urine WBC 2 Ur Squamous Epith Cells < 1 Urine Bacteria None 11/15/24 20:36 WBC RBC Hgb Hct MCV MCH MCHC RDW Std Deviation Plt Count Neut % (Auto) Lymph % (Auto) [place] % (Auto) Eos % (Auto) Baso % (Auto) Neut # (Auto) Lymph # (Auto) [place] # (Auto) Eos # (Auto) Baso # (Auto) Immature Gran # (Auto) Absolute Nucleated RBC Immature Gran % Nucleated RBC % PT INR APTT Sodium Potassium Chloride Carbon Dioxide Anion Gap BUN Creatinine Estim Creat Clear Calc eGFR BUN/Creatinine Ratio Glucose Calculated Osmolality Lactic Acid 1.2 Calcium Corrected Calcium Phosphorus Magnesium Total Bilirubin AST ALT Alkaline Phosphatase Lactate Dehydrogenase Total Creatine Kinase Troponin I B-Natriuretic Peptide Total Protein Albumin Globulin Albumin/Globulin Ratio Lipase Procalcitonin Ur Collection Type Urine Color Urine Clarity Urine pH Ur Specific [place] Urine Protein Urine Glucose (UA) Urine Ketones Urine Blood Urine Nitrite Urine Bilirubin Urine Urobilinogen (Auto) Ur Leukocyte Esterase Urine RBC Urine WBC Ur Squamous Epith Cells Urine Bacteria Quality Measures Quality Measures none Advance care planning discussed with:: patient Assessment & Plan Assessment Current Active Medications: Generic Name Dose Route Start Last Admin Trade Name Freq PRN Reason Stop Dose Admin Acetaminophen 650 mg 05/31/25 21:01 Acetaminophen 325 Mg Tablet PO 12/15/24 21:00 Q6H PRN Fever >101.5 Allopurinol 200 mg 11/16/24 09:00 Allopurinol 100 Mg Tablet PO 12/16/24 08:59 QDAY [facility] Aspirin 81 mg 11/16/24 09:00 Aspirin Ec 81 Mg Tabec PO 12/16/24 08:59 QDAY [facility] Azithromycin 500 mg 11/16/24 09:00 Azithromycin 250 Mg Tablet PO 11/23/24 08:59 QDAY [facility] Clopidogrel Bisulfate 75 mg 11/16/24 09:00 Clopidogrel Bisulfate 75 Mg Tablet PO 12/16/24 08:59 QDAY [facility] Docusate Sodium 100 mg 11/15/24 21:01 Docusate Sod 100 Mg Capsule PO 12/15/24 21:00 QDAY PRN CONSTIPATION Protocol Gabapentin 200 mg 11/16/24 09:00 Gabapentin 100 Mg Capsule PO 12/16/24 08:59 QDAY [facility] Heparin Sodium (Porcine) 5,000 unit 11/16/24 09:00 Heparin Sod Inj 5000 Unit/Ml Vial SC 11/30/24 08:59 Q12HR [facility] Ceftriaxone Sodium/Dextrose 1 gm in 50 mls @ 100 mls/hr 11/16/24 09:00 Rocephin/D5w 1gm Iv Premix IV 11/23/24 08:59 QDAY [facility] Ondansetron HCl 4 mg 11/15/24 21:01 Ondansetron Inj 2 Mg/Ml Inj 2 Ml IVP 12/15/24 21:00 Q6H PRN NAUSEA OR VOMITING Protocol Pantoprazole Sodium 40 mg 11/16/24 09:00 Pantoprazole 40 Mg Tablet PO 12/16/24 08:59 QDAY [facility] Rosuvastatin Calcium 20 mg 11/16/24 09:00 Rosuvastatin 5 Mg Tablet (Non-Form) PO 12/16/24 08:59 QDAY [facility] Tamsulosin HCl 0.8 mg 11/15/24 23:30 11/16/24 04:32 Tamsulosin Hcl 0.4 Mg Capsule PO 12/15/24 23:29 0.8 mg Q24H [facility] Administration Plan 83-year-old male with PMHx of HTN, HLD, CAD s/p PCI 12/11/2023, A-fib, gout, renal calculi s/p nephrostomy, BPH, shingles. Presented with generalized weakness x 1 day after being in the sun for 7 hours. Admitted for possible heat exhaustion versus pneumonia. Appreciate recommendations from cardiology. Generalized weakness Possible left base pneumonia Heat exhaustion? Reports being out in the sun for 7 hours, presented with generalized weakness. Had a fever of 102.7 on admission, which has resolved. No leukocytosis. Denies shortness of breath, headaches, fever, chest pain cough, abdominal, urinary symptoms. No focal neurological deficits on exam. 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 CXR showed prominent pneumonia of left base and angular segment of the left upper lobe. Pro-Calc was negative., COVID, influenza were negative. Overall symptoms improving. ? Pending physical therapy eval ? Continue CEFTRIAXONE and AZITHROMYCIN (11/15 to present) ? Continue oral hydration Atrial fibrillation, rate controlled CAD s/p PCI 11/2024 Had CAD on 12/10/[address] Ma, currently on dual ANTIPLATELET therapy. He has a history of A-fib, currently rate controlled. ELIQUIS was discontinued by cardiology given concern for urinary stents bleed. EKG showed A-fib again. Cardiology, Dr. Ma recommended discontinuing ASPIRIN, continue PLAVIX and starting ELIQUIS. ? Continue ELIQUIS 2.5 mg BID (renally adjusted) ? Continue PLAVIX 75 mg daily ? Continue ATORVASTATIN 20 mg daily ? Discontinued ASPIRIN 81 mg daily ? Dr. Ma will evaluate today, appreciate recommendations BPH ? Continue home TAMSULOSIN Gout ? Continue home ALLOPURINOL Hx kidney stones status post nephrostomy Patient currently does not have complaints of burning micturition, back pain History of shingles Diagnosed with shingles last year, has residual burning sensation of the right half of the face and upper right half of the chest. ? Continue home GABAPENTIN CKD stage IIIb Renal function appears at baseline at this time. Abdomen/pelvis CT showed atrophic left kidney without any other significant abnormalities ? Renally dose meds, avoid overdiuresis and NEPHROTOXINS ? Daily CMP Health maintenance Diet: Regular GI prophylaxis: PROTONIX DVT prophylaxis: ELIQUIS Antibiotics: CEFTRIAXONE, AZITHROMYCIN CODE STATUS: Full code Disposition: Pending cardiology eval Case was discussed with attending physician and senior resident. Gela Hassan DO PGYI Attending Provider Attestation/Addendum I attest that I was physically present for the evaluation, physical examination, lab and imaging review of the patient with the residents. I discussed the case with the residents and agree with the findings and plans of care as documented above. Patient is an 83 years old male with past medical history of hypertension, hyperlipidemia, CAD status post PCI in 2023, chronic A-fib not on any anticoagulation, gout, kidney stones status post nephrostomy, BPH, shingles who presented to the ED with generalized weakness. Patient was then admitted overnight for management of pneumonia and possible heat exhaustion. At bedside this morning, patient states she is feeling better and denies any new complaints. His last fever was yesterday evening. Patient was saturating at high 90s on 2 L nasal cannula wean him off the supplemental oxygen. Kidney function is improving, creatinine of 1.7 this morning. Patient continues to have A-fib, rate controlled. Unsure about the cause of discontinuation of Eliquis, discussed with Cardiology, recommended starting Eliquis and discontinue p.o. on Plavix. We will continue with azithromycin and Rocephin. If patient remains stable, able to maintain saturation on room air, we will plan for discharge tomorrow. Elsie Haider MD
--- NOTE | 2024-11-16 07:55 | EKG_ITS ---
[facility] Test Date: 2024-11-16 Pat Name: DARRION HERNANDEZ Department: Room: [facility] Gender: Male [employer]ic: LEE : 1940 Requested By: Gela Hassan Order Number: [id number] Reading MD: Gela Hassan Measurements Intervals [place] Rate: 95 P: ID: QRS: 32 QRSD: 85 T: 70 QT: 356 QTc: 449 Interpretive Statements ATRIAL FIBRILLATION LOW QRS VOLTAGE No previous ECG available for comparison /[id number]/S0/[id number]
[2024-11-16] MEDS: AZITHROMYCIN 250 MG TABLET 500 MG PO (09:47)
[2024-11-16] MEDS: ASPIRIN EC 81 MG TABEC PO (09:47)
[2024-11-16] MEDS: CLOPIDOGREL BISULFATE 75 MG TABLET PO (09:48)
[2024-11-16] MEDS: allopurinoL 100 MG TABLET 200 MG PO (09:48)
[2024-11-16] MEDS: PANTOPRAZOLE 40 MG TABLET PO (09:48)
[2024-11-16] MEDS: GABAPENTIN 100 MG CAPSULE 200 MG PO (09:48)
[2024-11-16] MEDS: HEPARIN SOD INJ 5000 UNIT/ML VIAL SC (09:50)
[2024-11-16] MEDS: cefTRIAXone/D5w 1gm IV premix 1 GM/50 ML BAG IV (09:56)
[2024-11-16 10:59] LABS: Basophils % (Auto) 1 % (0-2.5); Eosinophils # (Auto) 0.2 Thou/mm3 (0.0-0.5); Eosinophils % (Auto) 3 % (0-10); Hematocrit 39.1 % (41.0-53.0); Hemoglobin 13.5 g/dL (13.5-16.0); Immature Granulocytes % (Auto) 0 % (0-0); Immature Granulocytes Auto 0.02 Thou/mm3 (0.00-0.00); Lymphocytes # (Auto) 0.6 Thou/mm3 (1.0-4.8); Lymphocytes % (Auto) 10 % (10-50); Mean Corpuscular HGB Conc 34.5 g/dl (31.0-37.0); Mean Corpuscular Volume 84 fL (80-100); Monocytes # (Auto) 0.8 Thou/mm3 (0.0-0.8); Monocytes % (Auto) 13 % (0-12); Neutrophils # (Auto) 4.7 Thou/mm3 (1.8-7.7); Neutrophils % (Auto) 74 % (37-80); Nucleated Red Blood Cell % 0 /100 WBC (0); Platelet Count 176 Thou/mm3 (140-440); RDW Standard Deviation 43.3 fL (35.1-43.9); Red Blood Count 4.66 Miln/mm3 (4.50-5.90); White Blood Count 6.3 Thou/mm3 (3.8-10.6)
[2024-11-16 11:11] LABS: Alanine Aminotransferase 19 U/L (10-49); Albumin, Serum 3.8 gm/dL (3.4-4.8); Alkaline Phosphatase 73 U/L (46-116); Anion Gap 8 (7-16); Aspartate Amino Transferase 24 U/L (0-34); BUN/Creatinine Ratio 11 Ratio (12-20); Bilirubin,Total 0.5 mg/dL (0.3-1.2); Blood Urea Nitrogen 19 mg/dL (9-23); Calcium 8.1 mg/dL (8.3-10.6); Calcium (Corrected) 8.3 mg/dL (8.5-10.1); Carbon Dioxide 28.7 mMol/L (20.0-31.0); Chloride 106 mMol/L (98-107); Creatinine (Component) 1.7 mg/dL (0.6-1.3); Estimated Creatinine Clearance 35.2 mL/min (>60); Globulin 1.9 gm/dL (2.3-3.5); Glucose 158 mg/dL (74-106); Osmolality,Calculated 290 (275-295); Potassium 4.6 mMol/L (3.4-5.1); Sodium 143 mMol/L (136-145); Total Protein 5.7 gm/dL (5.7-8.2); eGFR 39 See Note
[2024-11-16] MEDS: ACETAMINOPHEN 325 MG TABLET 650 MG PO (16:01)
[2024-11-16] MEDS: ATORVASTATIN CALCIUM 20 MG TABLET PO (21:39)
[2024-11-16] MEDS: APIXABAN 2.5 MG TABLET PO (21:40)
[2024-11-16] MEDS: GABAPENTIN 100 MG CAPSULE 300 MG PO (21:40)
[2024-11-17] VITALS (8 sets, daily range): BP systolic 99–156; BP diastolic 74–93; PULSE 71–120; RESP 17–19; TEMP 36.4–36.6; O2SAT 95–98
[2024-11-17] MEDS: GABAPENTIN 100 MG CAPSULE 300 MG PO (05:32)
--- NOTE | 2024-11-17 08:06 | PD.RESPRO ---
Documentation for date of: 11/17/24 Exam Vital Signs Temp Pulse Resp BP Pulse Ox O2 Del Method O2 Flow Rate 97.8 F 98 19 156/93 H 96 Room Air 2 11/17/24 04:00 11/17/24 04:00 11/17/24 04:00 11/17/24 04:00 11/17/24 04:00 11/17/24 04:00 11/16/24 10:35 FiO2 2 11/15/24 21:16 Objective Labs 11/16/24 10:48 11/16/24 10:48 Labs: Laboratory Results - last 24 hr 11/16/24 10:48 WBC 6.3 RBC 4.66 Hgb 13.5 Hct 39.1 L MCV 84 MCH 29.0 MCHC 34.5 RDW Std Deviation 43.3 Plt Count 176 D Neut % (Auto) 74 Lymph % (Auto) 10 [place] % (Auto) 13 H Eos % (Auto) 3 Baso % (Auto) 1 Neut # (Auto) 4.7 Lymph # (Auto) 0.6 L [place] # (Auto) 0.8 Eos # (Auto) 0.2 Baso # (Auto) 0.0 Immature Gran # (Auto) 0.02 H Absolute Nucleated RBC 0.00 Immature Gran % 0 Nucleated RBC % 0 Sodium 143 Potassium 4.6 Chloride 106 Carbon Dioxide 28.7 Anion Gap 8 BUN 19 Creatinine 1.7 H Estim Creat Clear Calc 35.2 L eGFR 39 L BUN/Creatinine Ratio 11 L Glucose 158 H Calculated Osmolality 290 Calcium 8.1 L Corrected Calcium 8.3 L Total Bilirubin 0.5 AST 24 ALT 19 Alkaline Phosphatase 73 Total Protein 5.7 Albumin 3.8 Globulin 1.9 L Albumin/Globulin Ratio 2.0 Quality Measures Quality Measures none Assessment & Plan Assessment Current Active Medications: Generic Name Dose Route Start Last Admin Trade Name Freq PRN Reason Stop Dose Admin Acetaminophen 650 mg 11/16/24 10:19 11/16/24 16:01 Acetaminophen 325 Mg Tablet PO 12/15/24 21:00 650 mg Q6H PRN Administration Fever >100.3 Allopurinol 200 mg 11/16/24 09:00 11/16/24 09:48 Allopurinol 100 Mg Tablet PO 12/16/24 08:59 200 mg QDAY GAGE Administration Apixaban 2.5 mg 11/16/24 21:00 11/16/24 21:40 Apixaban 2.5 Mg Tablet PO 12/16/24 20:59 2.5 mg BID GAGE Administration Atorvastatin Calcium 20 mg 11/16/24 21:00 11/16/24 21:39 Atorvastatin Calcium 20 Mg Tablet PO 12/16/24 20:59 20 mg 2100 GAGE Administration Azithromycin 500 mg 11/16/24 09:00 11/16/24 09:47 Azithromycin 250 Mg Tablet PO 11/23/24 08:59 500 mg QDAY GAGE Administration Clopidogrel Bisulfate 75 mg 11/16/24 09:00 11/16/24 09:48 Clopidogrel Bisulfate 75 Mg Tablet PO 12/16/24 08:59 75 mg QDAY GAGE Administration Docusate Sodium 100 mg 11/15/24 21:01 Docusate Sod 100 Mg Capsule PO 12/15/24 21:00 QDAY PRN CONSTIPATION Protocol Gabapentin 300 mg 11/16/24 22:00 11/17/24 05:32 Gabapentin 100 Mg Capsule PO 12/16/24 21:59 300 mg TID GAGE Administration Ceftriaxone Sodium/Dextrose 1 gm in 50 mls @ 100 mls/hr 11/16/24 09:00 11/16/24 09:56 Rocephin/D5w 1gm Iv Premix IV 11/23/24 08:59 100 mls/hr QDAY GAGE Administration Ondansetron HCl 4 mg 11/15/24 21:01 Ondansetron Inj 2 Mg/Ml Inj 2 Ml IVP 12/15/24 21:00 Q6H PRN NAUSEA OR VOMITING Protocol Pantoprazole Sodium 40 mg 11/16/24 09:00 11/16/24 09:48 Pantoprazole 40 Mg Tablet PO 12/16/24 08:59 40 mg QDAY GAGE Administration Tamsulosin HCl 0.8 mg 11/16/24 21:00 11/16/24 21:39 Tamsulosin Hcl 0.4 Mg Capsule PO 12/15/24 23:29 0.8 mg HS GAGE Administration Plan 83-year-old male with PMHx of HTN, HLD, CAD s/p PCI 12/11/2023, A-fib, gout, CKD IIIB, renal calculi s/p nephrostomy, BPH, shingles. Presented with generalized weakness x 1 day after being in the sun for 7 hours. Admitted for possible heat exhaustion versus pneumonia. BP 141/86, HR 120, urine output 2.4 CBC unremarkable, calcium 8.3, repleted, CMP unchanged, CKD, stable No new culture, 24-hour blood culture negative Appreciate recommendations from cardiology. Generalized weakness Possible left base pneumonia Heat exhaustion? Reports being out in the sun for 7 hours, presented with generalized weakness. Had a fever of 102.7 on admission, which has resolved. No leukocytosis. Denies shortness of breath, headaches, fever, chest pain cough, abdominal, urinary symptoms. No focal neurological deficits on exam. 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 CXR showed prominent pneumonia of left base and angular segment of the left upper lobe. Pro-Calc was negative., COVID, influenza were negative. Overall symptoms improving. ? Pending physical therapy eval ? Continue CEFTRIAXONE and AZITHROMYCIN (11/15 to present) ? Continue oral hydration Atrial fibrillation CAD s/p PCI 11/2023 Had CAD on 12/10/[address] Ma, currently on dual ANTIPLATELET therapy. He has a history of A-fib, currently rate controlled. ELIQUIS was discontinued by cardiology given concern for urinary stents bleed. EKG showed A-fib again. Cardiology, Dr. Ma recommended discontinuing ASPIRIN, continue PLAVIX and starting ELIQUIS. ? Continue ELIQUIS 2.5 mg BID (renally adjusted) ? Continue PLAVIX 75 mg daily ? Continue ATORVASTATIN 20 mg daily ? Discontinued ASPIRIN 81 mg daily ? Dr. Ma will evaluate today, appreciate recommendations HTN BP 156/93, HR 98 ? CARVEDILOL 3.125 mg BID BPH ? Continue home TAMSULOSIN Gout ? Continue home ALLOPURINOL Hx kidney stones status post nephrostomy Patient currently does not have complaints of burning micturition, back pain History of shingles Diagnosed with shingles last year, has residual burning sensation of the right half of the face and upper right half of the chest. ? Continue home GABAPENTIN 300 mg TID CKD stage IIIb Renal function appears at baseline at this time. Abdomen/pelvis CT showed atrophic left kidney without any other significant abnormalities ? Renally dose meds, avoid overdiuresis and NEPHROTOXINS ? Daily CMP Health maintenance Diet: Regular GI prophylaxis: PROTONIX DVT prophylaxis: ELIQUIS Antibiotics: CEFTRIAXONE, AZITHROMYCIN CODE STATUS: Full code Disposition: Pending cardiology eval Case was discussed with attending physician and senior resident. Gela Hassan DO PGYI
[2024-11-17] MEDS: AZITHROMYCIN 250 MG TABLET 500 MG PO (08:48)
[2024-11-17] MEDS: PANTOPRAZOLE 40 MG TABLET PO (08:48)
[2024-11-17] MEDS: APIXABAN 2.5 MG TABLET PO (08:48)
[2024-11-17] MEDS: CLOPIDOGREL BISULFATE 75 MG TABLET PO (08:48)
[2024-11-17] MEDS: cefTRIAXone/D5w 1gm IV premix 1 GM/50 ML BAG IV (08:49)
[2024-11-17] MEDS: allopurinoL 100 MG TABLET 200 MG PO (08:49)
[2024-11-17] MEDS: METOPROLOL TARTRATE 25 MG TABLET PO (10:42)
--- NOTE | 2024-11-17 12:23 | PC.SS ---
Addendum entered by Sugar Castro 11/17/24 16:11: rounding note: Patient pending PT eval. Monitor and possible d/c tomorrow Original Note: Patient is alert/oriented. Patient was admitted for generalized weakness. Patient states he's independent with ADL's. He does not use any DME. Patient follows with Dr. Parikh. Last appt. was last week. He follows with Dr. Keita and Dr. Sethi. Discharge plan is to return home. Patient states his , Helder, is the alt medical decision maker. D/c plan is to return home. SS will follow up with patient for any changes in d/c plans.
[2024-11-17] MEDS: GABAPENTIN 300 MG CAPSULE PO (13:08)
--- NOTE | 2024-11-17 16:14 | PC.SS ---
Addendum entered by Sugar Castro 11/17/24 16:28: SS contacted patient's nurse to update that FWW will be delivered today by [facility]. SS asked [facility] to coordinate with patient or on delivery. Original Note: Follow up note: PEÑA received call from PT recommending HH services and a FWW. SS will verify with physician team and send through [email or web address].
--- NOTE | 2024-11-17 16:16 | ESDS_ITS ---
<Statement entered by Howard Charlton MD - 11/18/24 07:25> I discussed with and supervised the architecture intern physician involved in the care of this patient. Patient assessment and plan was discussed with entire medicine team, including my attending. I agree with the assessment and plan as documented by architecture intern doctor. Patient care was discussed with my attending physician Dr. Mitul Charlton, PGY-2 Planned Discharge Date 11/17/24 DS: Providers Provider Date of admission: 11/16/24 16:26 Primary care physician: Physician Kimberley Primary/Family Admitting Provider: Anton Vazquez MD Attending Provider on Admission: Fransisco Bauman DO Consults: 11/16/24 00:28 Referral Physical Therapy Stat Comment: Physician Instructions: Attending Provider on DC: Gela Hassan MD Discharging Provider: Gela Hassan MD DS: Diagnosis Problem List Completed Was Problem List Reviewed/Reconciled?: Yes Hospital Course Hospital Course Hospital course: This is a pleasant 83-year-old male with PMHx of HTN, HLD, CAD s/p PCI in 12/11/2023, chronic A-fib, gout, kidney stones s/p nephrostomy placement, BPH, and shingles. He presented on 11/16/2024 with chief complaint of generalized weakness after being out in the sun for prolonged period. Admission EKG showed AFIB with RVR, however resolved spontaneously. Admitted for dehydration, heat exhaustion, pneumonia. COVID and influenza A/B were negative, urine culture and blood culture were negative. Patient remained afebrile, without leukocytosis. His symptoms improved with oral hydration and 2 days of ANTIBIOTICS. Will continue with DOXYCYCLINE outpatient for 5 more days of therapy. Overall he was neurologically intact, no signs of focal neurological deficit, thus there is low suspicion for neurological involvement. He was evaluated by PT who recommended discharge with home health and front wheel walker. In the interim, we spoke to patient's reconditioning associate, Dr. Ma, in regards to ELIQUIS for A-fib, for which patient was previously on but was discontinued after hematuria. Per recommendations, ELIQUIS 2.5 mg BID was started, ASPIRIN was discontinued, and PLAVIX was continued. METOPROLOL was added for rate control. Patient will follow-up with cardiology outpatient, but will continue on PLAVIX until 1 year since last PCI from 12/11/2023. Increased risk of bleed including brain bleed was discussed with patient who agreed prior to starting therapy. IMAGING FINDINGS * CT abdominal pelvis: Suspect primary hepatocellular disease, Atrophic left kidney, No renal or ureteral calculi, no hydronephrosis, normal appendix, no bladder mass or bladder calcul. * CXR: Pneumonia left base and lingular segment left upper lobe. * EKG 11/13/2024: AFIB with RVR, HR 121, no acute ST changes. * EKG 11/16/2024: AFIB with HR 95, no acute ST changes. PATIENT INSTRUCTIONS: Follow-up with PCP within 1-2 weeks of discharge. Follow-up with cardiology within 1-2 weeks of discharge. Return to Emergency Room if symptoms persist, worsen, or new symptoms develop. STOP taking ASPIRIN 81 mg daily. Continue taking PLAVIX 75 mg daily. Continue taking ELIQUIS 2.5 mg twice daily (NEW). Continue taking METOPROLOL 25 mg XL daily (NEW). Continue taking DOXYCYCLINE twice daily to complete a 5-day course (NEW). Continue all other medications as prescribed below. ADMISSION DIAGNOSES: Generalized weakness Possible left base pneumonia Heat exhaustion? Atrial fibrillation, rate controlled CAD s/p PCI 11/2024 BPH Gout Hx kidney stones status post nephrostomy History of shingles CKD stage IIIb Case was discussed with attending physician and senior resident. Gela Hassan DO PGYI Time Spent with Patient Time attestation: Total time spent providing and/or coordinating discharge services: Greater than 35 minutes. Time spent: Greater than 30 minutes Exam Vital Signs Temp Pulse Resp BP Pulse Ox O2 Del Method O2 Flow Rate 97.8 F 84 18 99/74 96 Room Air 2 11/17/24 12:00 11/17/24 12:00 11/17/24 12:11/17/24 12:11/17/24 12:00 11/17/24 12:00 11/16/24 10:35 FiO2 2 11/15/24 21:16 Discharge Plan Plan Patient Disposition: Home w/HOME HEALTH Prescriptions/Referrals Prescriptions/Med Rec: New Eliquis 2.5 mg Tablet 2.5 mg PO BID Qty: 60 0RF clopidogrel 75 mg Tablet 75 mg PO QDAY Qty: 30 0RF doxycycline hyclate 100 mg tablet 100 mg PO BID 5 Days Qty: 10 0RF Continued tamsulosin [Flomax] 0.4 mg capsule 0.8 mg PO Q24H Rx Instructions: administer 30 minutes after same meal each day; swallow whole with liquid; do not crush/chew/dissolve/open allopurinol 100 mg Tablet 200 mg PO QDAY Rx Instructions: PO daily for high uric acid rosuvastatin 20 mg tablet 20 mg PO QDAY Patient Comments: TAKE 1 TABLET BY MOUTH EVERY DAY AT NIGHT FOR HIGH CHOLESTEROL gabapentin 100 mg capsule 600 mg PO BID Patient Comments: PLEASE SEE ATTACHED FOR DETAILED DIRECTIONS Discontinued aspirin 81 mg Tablet,Delayed Release (Dr/Ec) 81 mg PO QDAY Referrals: No Primary/Family,Physician [Primary Care Provider] - Patient/Caregiver Discharge Instructions Education Materials: What Is Pneumonia?, Preventing Pneumonia, Leg and Knee Exercises: Step-Ups, Leg Muscle Stretches: Knee Flexion, When You Have Pneumonia, Leg and Knee Exercises: Heel Raise Print Language: Peruvian Stand Alone Forms: Rashida Award Info., Patient Portal Info Letter Discharge Order Discharge Orders: Discharge (Routine); Ordered 11/17/24 Ordered By: Gela Hassan Quality Discharge Quality Measures VTE prophylaxis MD Attestestation MD Attestation I have discussed and was present for the essential components of the discharge history, physical examination, diagnosis, and discharge treatment plan with the resident. I agree with the patient's discharge care as documented by the resident and amended herein by me. Derik Bauman DO. The patient understood all discharge instructions, all questions were answered satisfactorily. The patient was instructed to return to the Emergency Department is symptoms worsened or persisted. Patient was stable, afebrile, tolerating p.o. intake and ambulatory at time of discharge home. Patient will need to follow-up with his primary care physician within 7 to 10 days of discharge. See resident note above for additional details in regards to hospital admission. Although this document has been carefully reviewed, there may still be some phonetic and other typographical errors. These errors are purely grammatical due to imperfections in the software program and should not be construed in any way to compromise the substance of the patient's medical care during this visit.
--- NOTE | 2024-11-17 16:16 | PC.SS ---
Patient needs a FWW for home. The diagnosis creates mobility limitation that significantly impairs ability to participate in the patients activities of daily living either in their entirety, or in a reasonable time frame. Also the patient is able to safely use the walker and the patient?s mobility is sufficiently resolved with the use of the walker and cane has been ruled out
--- NOTE | 2024-11-18 13:17 | PC.CM ---
Addendum entered by Iman Leary RN 11/18/24 15:15: Patient had been opened to [facility] in the past. I called and spoke to patient and he wanted to continue with [facility]. I canceled with [facility] and I let them know that it was my fault because I did not know he wanted [facility]. [facility] will see patient on 11/19. Addendum entered by Iman Leary RN 11/18/24 14:28: Correction. Start of care date 11/19. Original Note: Patient accepted by [facility]. Start of care date 11/18.
== END 2024-11-17 18:13 | disposition home health service (06) | DRG 178 ==
LOC: SERX 21:18 → S3NX 22:25
PROVIDERS: Internal Medicine; Nurse Practitioner Family; Admitting Provider Student in an Organized Health Care Education/Training Program; Emergency Provider Emergency Medicine; Visit Provider Student in an Organized Health Care Education/Training Program
DX: J15.69 Pneumonia due to other Gram-negative bacteria (principal); E87.20 Acidosis, unspecified; I48.20 Chronic atrial fibrillation, unspecified; E78.5 Hyperlipidemia, unspecified; I25.10 Atherosclerotic heart disease of native coronary artery without angina pectoris; I12.9 Hypertensive chronic kidney disease with stage 1 through stage 4 chronic kidney disease, or unspecified chronic kidney disease; N18.32 Chronic kidney disease, stage 3b; N40.0 Benign prostatic hyperplasia without lower urinary tract symptoms; M10.9 Gout, unspecified; T67.5XXA Heat exhaustion, unspecified, initial encounter; Z95.5 Presence of coronary angioplasty implant and graft; Z87.891 Personal history of nicotine dependence; Z87.442 Personal history of urinary calculi; E86.0 Dehydration; Z86.19 Personal history of other infectious and parasitic diseases; E83.39 Other disorders of phosphorus metabolism; X30.XXXA Exposure to excessive natural heat, initial encounter; Z79.02 Long term (current) use of antithrombotics/antiplatelets; Z79.82 Long term (current) use of aspirin; Z79.899 Other long term (current) drug therapy; Z93.6 Other artificial openings of urinary tract status; Z88.2 Allergy status to sulfonamides; Z79.01 Long term (current) use of anticoagulants
CPT/HCPCS: 36415; 71045; 74176; 80053; 81001; 82550; 83605; 83615; 83690; 83735; 83880; 84100; 84145; 84484; 85025; 85610; 85730; 87040; 87086; 87400; 87811; 93005; 96365; 96367; 97162; 99285; G0378; J0456; J0696; J1644; J7030; J7050; A9270

== ENCOUNTER → 2025-01-15 | Outpatient (CLI) | payer MEDICARE, SELFPAY ==
[2025-01-15 14:05] LABS: Collection Type, Urine Clean Catch; Squamous Epithelial Cell,Urine 0 /hpf (0-5)
[2025-01-15 14:30] LABS: Basophils # (Auto) 0.1 Thou/mm3 (0.0-0.2); Basophils % (Auto) 1 % (0-2.5); Eosinophils # (Auto) 0.2 Thou/mm3 (0.0-0.5); Eosinophils % (Auto) 3 % (0-10); Hematocrit 46.0 % (41.0-53.0); Hemoglobin 14.9 g/dL (13.5-16.0); Immature Granulocytes Auto 0.02 Thou/mm3 (0.00-0.00); Lymphocytes # (Auto) 1.4 Thou/mm3 (1.0-4.8); Lymphocytes % (Auto) 21 % (10-50); Mean Corpuscular HGB Conc 32.4 g/dl (31.0-37.0); Mean Corpuscular Hemoglobin 28.5 pg (25.0-35.0); Mean Corpuscular Volume 88 fL (80-100); Monocytes # (Auto) 0.8 Thou/mm3 (0.0-0.8); Monocytes % (Auto) 12 % (0-12); Neutrophils # (Auto) 4.2 Thou/mm3 (1.8-7.7); Neutrophils % (Auto) 63 % (37-80); Nucleated Red Blood Cell # 0.00 Thou/mm3 (0.00-0.00); Nucleated Red Blood Cell % 0 /100 WBC (0); Platelet Count 215 Thou/mm3 (140-440); RDW Standard Deviation 44.1 fL (35.1-43.9); Red Blood Count 5.23 Miln/mm3 (4.50-5.90); White Blood Count 6.7 Thou/mm3 (3.8-10.6)
[2025-01-15 14:33] LABS: Bilirubin,Urine Negative (Negative); Blood,Urine 3+ (Negative); Clarity,Urine Clear (Clear/Hazy); Color,Urine Yellow (Lt Yel-Yel); Glucose, Urine Negative (Negative); Hyaline Casts,Urine < 1 /hpf (0-1); Ketones,Urine Negative (Negative); Leukocyte Esterase,Urine Negative (Negative); Nitrite,Urine Negative (Negative); PH,Urine 5.5 (5.0-7.0); Protein,Urine Negative (Neg - Trace); RBC,Urine 71 /hpf (0-3); Specific Gravity,Urine 1.022 (1.001-1.035); Urobilinogen,Urine Negative mg/dL (0.0-1.0); WBC,Urine 10 /hpf (0-5)
[2025-01-15 14:42] LABS: Parathyroid Hormone Intact 129.4 pg/ml (18.5-88.0)
[2025-01-15 14:45] LABS: Albumin, Serum 4.1 gm/dL (3.4-4.8); Anion Gap 6 (7-16); BUN/Creatinine Ratio 8 Ratio (12-20); Blood Urea Nitrogen 16 mg/dL (9-23); Calcium 8.6 mg/dL (8.3-10.6); Calcium (Corrected) 8.6 mg/dL (8.5-10.1); Carbon Dioxide 26.9 mMol/L (20.0-31.0); Chloride 107 mMol/L (98-107); Creatinine (Component) 1.9 mg/dL (0.6-1.3); Glucose 99 mg/dL (74-106); Osmolality,Calculated 280 (275-295); Phosphorous 3.6 mg/dL (2.4-5.1); Potassium 4.6 mMol/L (3.4-5.1); Sodium 140 mMol/L (136-145); Uric Acid 5.6 mg/dL (3.7-9.2); eGFR 34 See Note
== END | disposition home or self-care (01) ==
LOC: COPL 13:19
PROVIDERS: PCP Family Medicine; Referring Provider Internal Medicine; Visit Provider Internal Medicine
DX: I12.9 Hypertensive chronic kidney disease with stage 1 through stage 4 chronic kidney disease, or unspecified chronic kidney disease (principal); N18.30 Chronic kidney disease, stage 3 unspecified
CPT/HCPCS: 36415; 80069; 81001; 83970; 84550; 85025

== ENCOUNTER → 2025-02-20 | Outpatient (CLI) | payer MEDICARE, SELFPAY ==
[2025-02-20 12:39] LABS: Prostate Specific Antigen 1.42 ng/mL (0-4.00)
[2025-02-20 12:42] LABS: Glucose Estimated Average 131 mg/dL (80-131); Hemoglobin A1C 6.2 % Hgb (4.8-6.0)
[2025-02-20 13:13] LABS: Alanine Aminotransferase 36 U/L (10-49); Albumin, Serum 4.1 gm/dL (3.4-4.8); Albumin/Globulin Ratio 2.1 (1.2-2.2); Alkaline Phosphatase 93 U/L (46-116); Anion Gap 9 (7-16); Aspartate Amino Transferase 31 U/L (0-34); BUN/Creatinine Ratio 9 Ratio (12-20); Bilirubin,Total 0.5 mg/dL (0.3-1.2); Blood Urea Nitrogen 17 mg/dL (9-23); Calcium 9.7 mg/dL (8.3-10.6); Calcium (Corrected) 9.7 mg/dL (8.5-10.1); Carbon Dioxide 26.7 mMol/L (20.0-31.0); Cardiac Risk Estimate 2.6 RATIO (4.0-6.7); Chloride 105 mMol/L (98-107); Cholesterol 85 mg/dL (132-200); Creatinine (Component) 1.8 mg/dL (0.6-1.3); Globulin 2.0 gm/dL (2.3-3.5); Glucose 102 mg/dL (74-106); HDL Cholesterol 33 mg/dL (40-60); LDL Cholesterol,Calculated 31 mg/dL (0-130); Osmolality,Calculated 282 (275-295); Potassium 4.8 mMol/L (3.4-5.1); Sodium 141 mMol/L (136-145); Total Protein 6.1 gm/dL (5.7-8.2); Triglycerides 106 mg/dL (30-150); eGFR 36 See Note
[2025-02-20 13:22] LABS: Uric Acid 5.3 mg/dL (3.7-9.2)
== END | disposition home or self-care (01) ==
LOC: COPL 11:34
PROVIDERS: PCP Family Medicine; Referring Provider Internal Medicine; Visit Provider Internal Medicine Cardiovascular Disease
DX: E11.22 Type 2 diabetes mellitus with diabetic chronic kidney disease (principal); N18.32 Chronic kidney disease, stage 3b; E11.59 Type 2 diabetes mellitus with other circulatory complications; I25.10 Atherosclerotic heart disease of native coronary artery without angina pectoris; N40.0 Benign prostatic hyperplasia without lower urinary tract symptoms; M10.9 Gout, unspecified; E78.2 Mixed hyperlipidemia
CPT/HCPCS: 36415; 80053; 80061; 83036; 84153; 84550